=== PATIENT | male | born 1960 | race African-American/Black ===

== ENCOUNTER 2017-02-12 05:41 | Inpatient (IN) | payer OTHER ==
[~2017-02-12] VITALS: Ht 200.7 cm; Wt 111.6 kg
--- NOTE | ~2017-02-12 | EKG ---
[address] [address] ELECTROCARDIOGRAM REPORT Name: IZABELA HANSON AMANDA Room #: 430-P ADM IN M.R.#: [id number] Admission: 02/12/17 Attend Phys: Christopher Beckett DO Discharge: Date of : 56 Report #: [id number] THIS REPORT FOR: //name// [facility] ED Test Date: 2017-02-12 Test Time: 06:01:17 Pat Name: IZABELA HANSON Department: Room: 430 Gender: M [employer] Education Aide: MAXI : 1960 Requested By: Puma Nunes Order Number: [id number] MD: Shon Murray Measurements Intervals [place] Rate: 82 P: 25 OK: 264 QRS: 69 QRSD: 96 T: 59 QT: 373 QTc: 436 Interpretive Statements Sinus rhythm Prolonged OK interval Abnormal R-wave progression, late transition Compared to ECG 05/21/2011 13:19:10 Sinus bradycardia no longer present Poor R-wave progression no longer present Electronically Signed On 02-13-2017 13:49:21 CDT by Shon Murray [email or web address] <ELECTRONICALLY SIGNED> By: Shon Murray MD 02/13/17 1349 0601 Shon Murray MD /EPI
[~2017-02-12 05:41] MED LIST: LISINOPRIL40 MG; LOPRESSOR 50 MG50 M1; MECLIZINE 25 MG25 M1 PO; TRAMADOL 50 MG50 MG
[2017-02-12 05:42] VITALS: BP 121/84
[2017-02-12 05:58] LABS: ABSOLUTE NEUTROPHILS 5.8 thou/uL (1.4-8.2); BASOPHILS 0.6 % (0.0-2.0); EOSINOPHILS 0.9 % (0.0-3.0); HEMATOCRIT 45.7 % (42.0-52.0); HEMOGLOBIN 15.4 gm/dL (14.0-18.0); LYMPHOCYTES 42.4 % (24.0-44.0); MCH 30.1 pg (26.0-34.0); MCHC 33.6 g/dL (28.0-37.0); MCV 89.7 fL (80.0-100.0); MONOCYTES 7.8 % (1.0-8.0); PLATELET COUNT 220 thou/uL (150-400); POLYS 48.3 % (36.0-66.0); RBC 5.09 mil/uL (4.50-6.00); RDW 13.7 % (10.5-14.5); WBC 12.1 thou/uL (4.0-11.0)
[2017-02-12 05:59] LABS: MANUAL DIFF NO
[2017-02-12] MEDS ORDERED: BAYER CHEWABLE81 MG PO (05:59)
[2017-02-12] MEDS ORDERED: SIMVASTATIN40 MG PO (05:59)
[2017-02-12 06:02] LABS: URINE BILIRUBIN NEGATIVE (Negative); URINE BLOOD 1+ (Negative); URINE COLOR YELLOW; URINE GLUCOSE-RANDOM* NEGATIVE (Negative); URINE KETONES NEGATIVE (Negative); URINE LEUKOCYTES-REFLEX NEGATIVE (Negative); URINE PROTEIN (DIPSTICK) 1+ (Negative); URINE SPECIFIC GRAVITY 1.025 (1.003-1.035); URINE UROBILINOGEN 0.2 E.U./dl (0.2-1.0)
[2017-02-12 06:06] LABS: CALCIUM 8.8 mg/dL (8.5-10.1); CREATININE 1.4 mg/dL (0.7-1.3); POTASSIUM 4.4 mmol/L (3.5-5.1)
[2017-02-12 06:12] LABS: AMP/METHAMP Negative (Negative); BARBITURATES Negative (Negative); BENZODIAZEPINES Negative (Negative); COCAINE Negative (Negative); METHADONE Negative (Negative); OPIATES Negative (Negative); PCP Negative (Negative); THC POSITIVE (Negative)
[2017-02-12 06:12] LABS: ALBUMIN 3.8 g/dL (3.4-5.0); TOTAL BILIRUBIN 0.7 mg/dL (<0.1-1.0); TOTAL PROTEIN 7.8 g/dL (6.4-8.2)
[2017-02-12 06:29] LABS: HYALINE CASTS 4-10 Moderate /LPF (None Seen)
[2017-02-12 06:31] LABS: CRYSTALS None Seen /LPF (None Seen); SQUAMOUS None Seen /LPF (0-3); URINE RBC 0-2 Rare /HPF (0-2); URINE WBC-REFLEX 0-5 Rare /HPF (0-5)
[2017-02-12 06:53] VITALS: BP 97/66
[2017-02-12 07:35] VITALS: BP 130/88
[2017-02-12 12:05] LABS: FOLIC ACID 18.2 ng/mL (8.6-58.9)
[2017-02-12 15:34] VITALS: BP 109/54
[2017-02-12 20:39] VITALS: BP 100/59
[2017-02-13 01:11] LABS: GLYCOHEMOGLOBIN (HGB A1C) 5.9 % (4.8-5.6)
[2017-02-13 05:51] VITALS: BP 111/69
[2017-02-13 07:46] VITALS: BP 126/86
[2017-02-13] MEDS ORDERED: KEPPRA 500 MG500 M1 PO (08:50)
[2017-02-13] MEDS ORDERED: FLEXERIL PO (08:51)
[2017-02-13 16:52] VITALS: BP 115/64
[2017-02-13 21:00] VITALS: BP 122/83
[2017-02-14 04:14] VITALS: BP 121/91
[2017-02-14 09:04] VITALS: BP 129/96
[2017-02-14 16:30] VITALS: BP 144/95
[2017-02-14 19:55] VITALS: BP 123/86
[2017-02-14 22:06] LABS: ALPHA TOCOPHEROL 11.2 mg/L (5.3-17.5)
[2017-02-15 04:13] VITALS: BP 119/78
[2017-02-15 04:13] LABS: HEMATOCRIT 41.1 % (42.0-52.0); HEMOGLOBIN 14.1 gm/dL (14.0-18.0); MCH 30.4 pg (26.0-34.0); MCHC 34.4 g/dL (28.0-37.0); MCV 88.5 fL (80.0-100.0); RBC 4.64 mil/uL (4.50-6.00); RDW 13.4 % (10.5-14.5); WBC 8.7 thou/uL (4.0-11.0)
[2017-02-15 04:15] LABS: ALBUMIN 3.3 g/dL (3.4-5.0); CALCIUM 8.8 mg/dL (8.5-10.1); CREATININE 1.2 mg/dL (0.7-1.3); PHOSPHORUS 4.7 mg/dL (2.5-4.9); POTASSIUM 4.1 mmol/L (3.5-5.1)
[2017-02-15 08:30] VITALS: BP 128/89
[2017-02-15 16:00] VITALS: BP 132/89
[2017-02-15 20:00] VITALS: BP 154/90
[2017-02-16 04:00] VITALS: BP 122/86
[2017-02-16 08:00] VITALS: BP 120/86
[2017-02-16] MEDS ORDERED: NORCO 10-325 T1 EACH PO (09:03)
[2017-02-16 11:10] VITALS: BP 120/86
== END 2017-02-16 15:49 | disposition home health service (06) | DRG 100 ==
LOC: ER 05:41 → EROBS 06:03 → 4E 06:03
PROVIDERS: Emergency Medicine; Hospitalist; Psychiatry & Neurology Neurology
DX: R56.9 Unspecified convulsions (principal); G93.40 Encephalopathy, unspecified; M48.54XA Collapsed vertebra, not elsewhere classified, thoracic region, initial encounter for fracture; I10 Essential (primary) hypertension; E11.9 Type 2 diabetes mellitus without complications; E78.5 Hyperlipidemia, unspecified; R41.3 Other amnesia; F15.10 Other stimulant abuse, uncomplicated; E66.9 Obesity, unspecified; W18.39XA Other fall on same level, initial encounter; Y93.89 Activity, other specified; Y92.89 Other specified places as the place of occurrence of the external cause; Z68.27 Body mass index [BMI] 27.0-27.9, adult; Z95.2 Presence of prosthetic heart valve; Z79.899 Other long term (current) drug therapy; Z88.6 Allergy status to analgesic agent; Y99.8 Other external cause status
CPT/HCPCS: 10183

== ENCOUNTER 2017-05-08 13:35 | Emergency (ER) | payer OTHER ==
[~2017-05-08] VITALS: Ht 167.6 cm; Wt 108.9 kg
[~2017-05-08 13:35] MED LIST changes: +BAYER CHEWABLE81 MG PO; +FLEXERIL PO; +KEPPRA 500 MG500 M1 PO; +NORCO 10-325 T1 EACH PO; +SIMVASTATIN40 MG PO
[2017-05-08] MEDS ORDERED: HYDROCODONE-AP1 EAC6 PO (14:54)
== END 2017-05-08 15:31 | disposition home or self-care (01) ==
LOC: ER 13:35
DX: M25.512 Pain in left shoulder (principal); I10 Essential (primary) hypertension; E11.9 Type 2 diabetes mellitus without complications; E78.5 Hyperlipidemia, unspecified; F10.99 Alcohol use, unspecified with unspecified alcohol-induced disorder; Z95.4 Presence of other heart-valve replacement; Z88.6 Allergy status to analgesic agent

== ENCOUNTER → 2017-08-18 | Outpatient (CLI) | payer OTHER ==
[~2017-08-18] MED LIST changes: +HYDROCODONE-AP1 EAC6 PO
--- NOTE | ~2017-08-18 | EEG ---
[facility] [place] [address] ELECTROENCEPHALOGRAM Name: IZABELA HANSON Room #: REG [facility] M.R.#: [id number] Admission: 08/18/17 Attend Phys: Jimmy Smith MD Discharge: Date of : 56 Report #: [id number] THIS REPORT FOR: //name// CC: FAM physician/PCP Jimmy Smith DATE OF SERVICE: 08/18/2017 This patient is being evaluated for the possibility of seizures. EEG was done by placing the electrodes by standard 10-20 system of electrode placement. Both referential and sequential montages were used for recording. Background activity in this patient's EEG is about 11 Hz and 40 microvolts. There was a symmetrical activity. The patient went to sleep that is associated with bilateral slowing and vertex sharp waves. Photic stimulation is unremarkable. Throughout the record, no active epileptiform activity was noted. IMPRESSION: This patient's EEG is within normal limits. No active epileptiform activity was noticed during this record. Thank you very much for this referral. <ELECTRONICALLY SIGNED> By: Jimmy Smith MD 08/24/17 1816 1659 1705 Jimmy Smith MD /nt
== END ==
LOC: NEURO 09:19
DX: G40.209 Localization-related (focal) (partial) symptomatic epilepsy and epileptic syndromes with complex partial seizures, not intractable, without status epilepticus (principal); G47.33 Obstructive sleep apnea (adult) (pediatric)

== ENCOUNTER 2018-10-27 09:55 | Emergency (ER) | payer OTHER ==
[~2018-10-27] VITALS: Ht 170.2 cm; Wt 113.4 kg
[2018-10-27] MEDS ORDERED: KEPPRA 500 MG500 M1 PO (10:05)
[2018-10-27 12:16] LABS: ABSOLUTE NEUTROPHILS 6.2 thou/uL (1.4-8.2); BASOPHILS 0.8 % (0.0-2.0); EOSINOPHILS 0.4 % (0.0-3.0); HEMATOCRIT 43.8 % (42.0-52.0); LYMPHOCYTES 14.2 % (24.0-44.0); MCH 30.5 pg (26.0-34.0); MCHC 34.3 g/dL (28.0-37.0); MONOCYTES 8.2 % (1.0-8.0); PLATELET COUNT 185 thou/uL (150-400); POLYS 76.4 % (36.0-66.0); RBC 4.92 mil/uL (4.50-6.00); RDW 13.9 % (10.5-14.5); WBC 8.1 thou/uL (4.0-11.0)
[2018-10-27 12:24] LABS: CALCIUM 8.8 mg/dL (8.5-10.1); CREATININE 1.2 mg/dL (0.7-1.3); POTASSIUM 4.3 mmol/L (3.5-5.1)
[2018-10-27 12:35] LABS: URINE BILIRUBIN NEGATIVE (Negative); URINE BLOOD NEGATIVE (Negative); URINE CLARITY CLEAR; URINE COLOR YELLOW; URINE GLUCOSE-RANDOM* NEGATIVE (Negative); URINE KETONES NEGATIVE (Negative); URINE LEUKOCYTES-REFLEX NEGATIVE (Negative); URINE NITRITE-REFLEX NEGATIVE (Negative); URINE PROTEIN (DIPSTICK) NEGATIVE (Negative); URINE UROBILINOGEN 0.2 E.U./dl (0.2-1.0)
[2018-10-27 14:13] VITALS: BP 103/71
== END 2018-10-27 14:17 | disposition home or self-care (01) ==
LOC: ER 09:55
PROVIDERS: Student in an Organized Health Care Education/Training Program
DX: R56.9 Unspecified convulsions (principal); I10 Essential (primary) hypertension; E11.9 Type 2 diabetes mellitus without complications; E78.5 Hyperlipidemia, unspecified; Z88.8 Allergy status to other drugs, medicaments and biological substances

== ENCOUNTER → 2018-12-16 | Outpatient (CLI) | payer OTHER ==
--- NOTE | ~2018-12-16 | EEG ---
[facility] [place] [address] ELECTROENCEPHALOGRAM Name: IZABELA HANSON Room #: REG [facility] M.R.#: [id number] ������������������ Admission: 12/16/18 ������������������ Attend Phys: Jimmy Smith MD Discharge: ������������������ Date of : 56 Report #: [id number] ����������������������������������������������������������������� [id number] THIS REPORT FOR: //name// CC: Jimmy Peña DATE OF SERVICE: 12/16/2018 This patient is being evaluated for the possibility of seizure. EEG was done by placing the electrodes by standard 10-20 system of electrode placement. Both referential and sequential montages were used for recording. Background activity in this patient's EEG is about 11 Hz and 30 microvolt. This is a symmetrical activity. The patient became drowsy and that was associated with bilateral slowing and vertex sharp waves. Photic stimulation was unremarkable. Throughout the record, no active epileptiform activity was noticed. IMPRESSION: This patient's EEG is within normal limit. Thank you very much for this referral. ���������������������������������������� ���������������������������������������� By: ��������������������������������������������� 52 52 Jimmy Smith MD /nt
== END ==
LOC: NEURO 10:42
DX: G47.30 Sleep apnea, unspecified (principal); R56.9 Unspecified convulsions; E66.01 Morbid (severe) obesity due to excess calories; Z95.3 Presence of xenogenic heart valve; Z68.41 Body mass index [BMI] 40.0-44.9, adult; Z88.8 Allergy status to other drugs, medicaments and biological substances

== ENCOUNTER 2019-10-19 00:06 | Emergency (ER) | payer OTHER ==
[~2019-10-19] VITALS: Ht 165.1 cm; Wt 101.6 kg
[2019-10-19 00:54] LABS: ABSOLUTE NEUTROPHILS 3.4 thou/uL (1.4-8.2); BASOPHILS 0.8 % (0.0-2.0); EOSINOPHILS 1.3 % (0.0-3.0); HEMATOCRIT 45.1 % (42.0-52.0); HEMOGLOBIN 14.8 gm/dL (14.0-18.0); LYMPHOCYTES 46.3 % (24.0-44.0); MCH 30.1 pg (26.0-34.0); MCHC 32.8 g/dL (28.0-37.0); MCV 91.9 fL (80.0-100.0); MONOCYTES 11.5 % (1.0-8.0); PLATELET COUNT 206 thou/uL (150-400); POLYS 40.1 % (36.0-66.0); RBC 4.91 mil/uL (4.50-6.00); RDW 13.6 % (10.5-14.5); WBC 8.5 thou/uL (4.0-11.0)
[2019-10-19 00:55] LABS: URINE BILIRUBIN NEGATIVE (Negative); URINE BLOOD NEGATIVE (Negative); URINE CLARITY CLEAR; URINE COLOR YELLOW; URINE GLUCOSE-RANDOM* NEGATIVE (Negative); URINE KETONES NEGATIVE (Negative); URINE LEUKOCYTES-REFLEX NEGATIVE (Negative); URINE NITRITE-REFLEX NEGATIVE (Negative); URINE PROTEIN (DIPSTICK) 1+ (Negative); URINE SPECIFIC GRAVITY 1.025 (1.005-1.035)
[2019-10-19 00:59] LABS: CALCIUM 8.9 mg/dL (8.5-10.1); CREATININE 1.5 mg/dL (0.7-1.3); POTASSIUM 3.9 mmol/L (3.5-5.1)
[2019-10-19 01:08] LABS: ALBUMIN 3.8 g/dL (3.4-5.0); DIRECT BILIRUBIN 0.2 mg/dL (<0.1-0.2); TOTAL BILIRUBIN 0.9 mg/dL (<0.1-1.0); TOTAL PROTEIN 7.3 g/dL (6.4-8.2)
[2019-10-19 01:16] LABS: BACTERIA-REFLEX None Seen /HPF (None Seen); CASTS None Seen /LPF (None Seen); CRYSTALS None Seen /LPF (None Seen); MUCUS 0-3 Light strn/LPF (None Seen); SQUAMOUS 0-3 Few /LPF (0-3); URINE RBC 0-2 Rare /HPF (0-2); URINE WBC-REFLEX 0-5 Rare /HPF (0-5)
[2019-10-19 03:08] VITALS: BP 99/50
== END 2019-10-19 03:10 | disposition home or self-care (01) ==
LOC: ER 00:06
PROVIDERS: Emergency Medicine
DX: R56.9 Unspecified convulsions (principal); R41.0 Disorientation, unspecified; R55 Syncope and collapse; I10 Essential (primary) hypertension; E78.5 Hyperlipidemia, unspecified; E11.9 Type 2 diabetes mellitus without complications; Z88.8 Allergy status to other drugs, medicaments and biological substances; Z79.899 Other long term (current) drug therapy; Z95.2 Presence of prosthetic heart valve

== ENCOUNTER 2020-08-11 07:27 | Emergency (ER) | payer OTHER ==
[~2020-08-11] VITALS: Ht 167.6 cm; Wt 104.3 kg
[2020-08-11 07:28] VITALS: BP 105/45
[2020-08-11] MEDS ORDERED: CLARITIN10 MG PO (07:43)
[2020-08-11] MEDS ORDERED: ASA81BEC PO (07:43)
[2020-08-11] MEDS ORDERED: SUPER THERAVIT1 EACH PO (07:43)
[2020-08-11] MEDS ORDERED: VITAMIN D310 MC1 PO (07:44)
== END 2020-08-11 08:36 | disposition home or self-care (01) ==
LOC: ER 07:27
DX: G40.909 Epilepsy, unspecified, not intractable, without status epilepticus (principal); R05 Cough; I10 Essential (primary) hypertension; E11.9 Type 2 diabetes mellitus without complications; E78.5 Hyperlipidemia, unspecified; Z79.899 Other long term (current) drug therapy; Z79.82 Long term (current) use of aspirin; Z88.8 Allergy status to other drugs, medicaments and biological substances

== ENCOUNTER 2021-02-01 15:40 | Emergency (ER) | payer OTHER ==
[~2021-02-01] VITALS: Ht 165.1 cm; Wt 99.8 kg
--- NOTE | ~2021-02-01 | EMS ---
[address] [address] EMS Patient Care Report Name: IZABELA HANSON Room #: REG CONCETTA Gudino#: [id number] Admission: 02/01/21 Attend Phys: Discharge: Date of : 56 Report #: [id number] THIS REPORT FOR: //name// Report Transmitted: 02/01/2021 15:59 EMS Care Summary [facility] Incident [id number] @ 02/01/2021 15:11 Incident Location [address] [place] [address] Patient IZABELA HANSON Male, 60 Years 1960 Patient Address [address] [place] [address] Patient History Hypertension (HTN),Seizures, Patient Allergies No known allergies, Patient Medications Keppra, Chief Complaint SEIZURES Disposition Transported No Lights/[place] Dispatch Reason Sick Person Transported To [facility] Narrative DISPATCHED EMERGENT RESPONDED EMERGENT WITHOUT INCIDENT. UPON ARRIVAL PATIENT WAS FOUND ALERT BUT DISORIENTED ON COUCH IN RESIDENCE. FIANCE STATED THAT PATIENT HAS HAD 3 SEIZURES TODAY, HIS LAST SEIZURE WAS JUST [address] [address] EMS Patient Care Report Name: IZABELA HANSON Room #: REG John.#: [id number] Admission: 02/01/21 Attend Phys: Discharge: Date of : 56 Report #: [id number] PRIOR TO CALLING EMS AND EACH SEIZURE HAS LASTED APPROXIMATELY 2 MINUTES. DESCRIBED FULL BODY SHAKING AND CLENCHING. FAMILY DENIES FALLS BUT STATES PATIENT APPEARS TO HAVE BIT HIS TONGUE. PATIENT HAS A HISTORY OF SEIZURES BUT REPORTED TO BE AN INCREASE OVER THE PAST 2 DAYS. PATIENT HAS BEEN COMPLIANT WITH HIS MEDICATIONS. FAMILY IS REQUESTING TRANSPORT TO [facility]. PATIENT IS ASSISTED ONTO STRETCHER, SECURED WITH RESTRAINTS AND TAKEN TO AMBULANCE. EN ROUTE TO FACILITY PATIENT IS ALERT AND ORIENTED X4 AND ACTING APPROPRIATE PATIENT CONFIRMS HE HAS BEEN MEDICATION COMPLIANT AND STATES THAT HE HAS BEEN HAVING SEIZURES SINCE 2017 AND WAS RECENTLY DIAGNOSED WITH EPILEPSY. PATIENT HAS NO OTHER COMLPAINTS AT THIS TIME. PATIENT DOES APPEAR TO HAVE BLOOD ON HIS LIP AND TONGUE FROM POSSIBLY BITING HIS TONGUE. NO OTHER INJURIES NOTED. VITALS MONITORED THROUGHOUT TRANSPORT. RADIO REPORT CALLED TO ED. UPON ARRIVAL TO ED PATIENT IS TAKEN TO ED ROOM 10 WHERE PATIENT REPORT IS GIVEN DIRECTLY TO RN AT BEDSIDE. PATIENT IS ABLE TO SCOOT FROM STRETCHER TO BED WITHOUT DIFFICULTY. PATIENT CARE TRANSFERRED DIRECTLY TO RN AT BEDSIDE. PATIENT IN STABLE CONDITION AT TRANSFER OF CARE. Initial Vitals @15:30P: 92,CO: 4,SpO2: 94, @15:23P: 93,CO: 4,SpO2: 95, @15:23P: 91,CO: 4,SpO2: 95, @15:36P: 83,SpO2: 94, @15:35P: 88,SpO2: 95, @15:25P: 92,CO: 5,SpO2: 95, @15:16P: 95,R: 18,BP: 168/111,Pain: 0/10,GCS: 14,Glucose: 93,CO: 1,SpO2: 96,Revised Trauma: 12, @15:29P: 92,R: 18,BP: 150/90,Pain: 0/10,GCS: 15,Glucose: 93,Revised Trauma: 12, @15:35P: 90,R: 18,BP: 146/78,GCS: 15,Glucose: 93,SpO2: 94,Revised Trauma: 12, Assessments @15:15MENTAL:Person Oriented,Time Oriented,Place Oriented,Event Oriented,SKIN:HEENT:Eyes: Left Pupil: 4-mm,Eyes: Right Pupil: 4-mm,Head/Face: No Abnormalities,Neck/Airway: No Abnormalities,LUNG SOUNDS:General: No Abnormalities,ABDOMEN:General: No Abnormalities,PELVIS//GI:No Abnormalities,EXTREMITIES:Left Arm: No Abnormalities,Right Arm: No Abnormalities,Left Leg: No Abnormalities,Right Leg: No Abnormalities,PULSE:NEURO:No Abnormalities, Impression Seizures Procedures @15:23Saline Lock 0cc (18 ga) Site: Antecubital-LeftResponse: [address] [address] EMS Patient Care Report Name: IZABELA HANSON Room #: REG CONCETTA Gudino#: [id number] Admission: 02/01/21 Attend Phys: Discharge: Date of : 56 Report #: [id number] UnchangedSucceeded@15:14ALS AssessmentResponse: UnchangedSucceeded@15:233-Lead ECGResponse: UnchangedSucceeded Timeline 15:09,Call Received 15:09,Psap Call 15:11,Dispatched 15:11,En Route 15:13,Initial Responder On Scene 15:13,On Scene 15:14,At Patient 15:14,ALS Assessment,Response: UnchangedSucceeded, 15:16,BP: 168/111 M,PULSE: 95,RR: 18 R,SPO2: 96 Ox,ETCO2: ,B,PAIN: 0,GCS: 14, 15:23,3-Lead ECG,Response: UnchangedSucceeded, 15:23,BP: / M,PULSE: 91,RR: R,SPO2: 95 Ox,ETCO2: ,BG: ,PAIN: ,GCS: , 15:23,Saline Lock 0cc 18 ga Site: Antecubital-Left,Response: UnchangedSucceeded, 15:23,BP: / M,PULSE: 93,RR: R,SPO2: 95 Ox,ETCO2: ,BG: ,PAIN: ,GCS: , 15:24,Depart Scene 15:25,BP: / M,PULSE: 92,RR: R,SPO2: 95 Ox,ETCO2: ,BG: ,PAIN: ,GCS: , 15:29,BP: 150/90 M,PULSE: 92,RR: 18 R,SPO2: Ox,ETCO2: ,B,PAIN: 0,GCS: 15, 15:30,BP: / M,PULSE: 92,RR: R,SPO2: 94 Ox,ETCO2: ,BG: ,PAIN: ,GCS: , 15:35,BP: / M,PULSE: 88,RR: R,SPO2: 95 Ox,ETCO2: ,BG: ,PAIN: ,GCS: , 15:35,BP: 146/78 M,PULSE: 90,RR: 18 R,SPO2: 94 Ox,ETCO2: ,B,PAIN: ,GCS: 15, 15:36,BP: / M,PULSE: 83,RR: R,SPO2: 94 Ox,ETCO2: ,BG: ,PAIN: ,GCS: , 15:37,At Destination 15:55,Call Closed Disclaimer v1.1 Copyright 2020 [employer] This EMS Care Summary contains data elements from the applicable legal record (which may be displayed differently). It is designed to provide pertinent information for the following purposes: continuity of care, clinical quality, and state data reporting. The complete legal record is available to ED staff and administrators of the receiving hospital in [facility]'s Patient Tracker. All data is provided "as is."
[~2021-02-01 15:40] MED LIST changes: +ASA81BEC PO; +CLARITIN10 MG PO; +SUPER THERAVIT1 EACH PO; +VITAMIN D310 MC1 PO
[2021-02-01] MEDS ORDERED: HYDROCODON-ACE1 EAC7 PO (15:58)
[2021-02-01 16:03] LABS: ABSOLUTE NEUTROPHILS 5.2 thou/uL (1.4-8.2); BASOPHILS 1.5 % (0.0-2.0); EOSINOPHILS 0.7 % (0.0-3.0); HEMATOCRIT 46.4 % (42.0-52.0); HEMOGLOBIN 15.5 gm/dL (14.0-18.0); MCH 30.9 pg (26.0-34.0); MCHC 33.3 g/dL (28.0-37.0); MCV 92.6 fL (80.0-100.0); MONOCYTES 8.1 % (1.0-8.0); PLATELET COUNT 249 thou/uL (150-400); POLYS 52.7 % (36.0-66.0); RDW 13.4 % (10.5-14.5); WBC 9.8 thou/uL (4.0-11.0)
[2021-02-01 16:08] LABS: ANION GAP 10 mmol/L (7-16); BUN 15 mg/dL (7-18); CALCIUM 9.2 mg/dL (8.5-10.1); CHLORIDE 102 mmol/L (98-107); CO2 24 mmol/L (21-32); CREATININE 1.8 mg/dL (0.7-1.3); GLUCOSE 101 mg/dL (74-106); POTASSIUM 5.2 mmol/L (3.5-5.1); SODIUM 136 mmol/L (136-145)
[2021-02-01 16:18] LABS: ALBUMIN 3.8 g/dL (3.4-5.0); SGOT 32 U/L (15-37); SGPT 53 U/L (16-63); TOTAL BILIRUBIN 0.7 mg/dL (0.2-1.0); TOTAL PROTEIN 7.9 g/dL (6.4-8.2); TROPONIN-I <0.06 ng/mL (<0.06)
[2021-02-01 16:53] LABS: URINE BILIRUBIN NEGATIVE (Negative); URINE BLOOD TRACE (Negative); URINE CLARITY CLEAR; URINE COLOR YELLOW; URINE GLUCOSE-RANDOM* NEGATIVE (Negative); URINE KETONES NEGATIVE (Negative); URINE LEUKOCYTES-REFLEX NEGATIVE (Negative); URINE NITRITE-REFLEX NEGATIVE (Negative); URINE PROTEIN (DIPSTICK) TRACE (Negative); URINE SPECIFIC GRAVITY >= 1.030 (1.005-1.035); URINE UROBILINOGEN 0.2 E.U./dl (0.2-1.0)
[2021-02-01 17:01] LABS: AMP/METHAMP Negative (Negative); BARBITURATES Negative (Negative); BENZODIAZEPINES Negative (Negative); COCAINE Negative (Negative); METHADONE Negative (Negative); OPIATES Negative (Negative); PCP Negative (Negative)
[2021-02-01 18:54] VITALS: BP 125/74
== END 2021-02-01 18:54 | disposition home or self-care (01) ==
LOC: ER 15:40
PROVIDERS: Emergency Medicine
DX: G40.909 Epilepsy, unspecified, not intractable, without status epilepticus (principal); Z20.822 Contact with and (suspected) exposure to COVID-19; E86.0 Dehydration; F12.90 Cannabis use, unspecified, uncomplicated; I10 Essential (primary) hypertension; E11.9 Type 2 diabetes mellitus without complications; Z88.6 Allergy status to analgesic agent; Z79.899 Other long term (current) drug therapy